=== PATIENT | male | born 1990 | race Hispanic/Latino ===

== ENCOUNTER 2019-01-02 14:12 | Emergency (ER) | payer OTHER ==
[2019-01-02 14:19] VITALS: O2SAT 98
[2019-01-02] MEDS ORDERED: Sodium Chloride 0.9% 1,000 ML IV STA (14:46)
[2019-01-02 15:07] LABS: BASO % 0.4 % (0.0-2.0); EOS % 0.4 % (0.0-4.0); HEMOGLOBIN 13.5 g/dL (12.0-18.0); LYMPH # 1.2 K/uL (1.0-4.3); LYMPH % 10.7 % (20.0-40.0); MEAN CELL VOLUME 93.8 fl (80.0-94.0); MEAN CORPUSCULAR HEMOGLOBIN 31.6 pg (27.0-31.0); MEAN CORPUSCULAR HGB CONC 33.7 g/dL (33.0-37.0); MEAN PLATELET VOLUME 8.9 fl (7.2-11.7); MONO # 0.7 K/uL (0.0-0.8); MONO % 6.2 % (0.0-10.0); NEUT # 9.2 K/uL (1.8-7.0); NEUT % 82.3 % (50.0-75.0); NRBC % 0.1 % (0.0-0.0); RBC 4.27 Mil/uL (4.40-5.90); RED CELL DISTRIBUTION WIDTH 13.3 % (11.5-14.5); WHITE BLOOD COUNT 11.1 K/uL (4.8-10.8)
[2019-01-02 15:19] LABS: ALB/GLOB RATIO 1.7 (1.0-2.1); ALBUMIN 4.5 g/dL (3.5-5.0); ALT/SGPT 30 U/L (21-72); AST/SGOT 31 U/L (17-59); BLOOD UREA NITROGEN 22 mg/dl (9-20); CALCIUM 9.4 mg/dL (8.4-10.2); GFR NON-AFRICAN AMERICAN > 60; LIPASE 42 U/L (23-300)
[2019-01-02 15:35] LABS: SQUAMOUS EPITHIAL < 1 /hpf (0-5); URINE BACTERIA RARE (<OCC); URINE BILIRUBIN NEGATIVE (NEGATIVE); URINE BLOOD NEGATIVE (NEGATIVE); URINE CLARITY CLEAR (Clear); URINE COLOR YELLOW (YELLOW); URINE GLUCOSE (UA) NEG (NEGATIVE); URINE LEUKOCYTE ESTERASE NEG Leu/uL (Negative); URINE PROTEIN NEGATIVE (NEGATIVE); URINE UROBILINOGEN 0.2-1.0 mg/dL (0.2-1.0)
--- NOTE | 2019-01-02 15:39 | ED PDOC ---
HPI: Abdomen Time Seen by Provider: 01/02/19 14:26 Chief Complaint (Nursing): Abdominal Pain History Per: Patient Additional Complaint(s): Pt. states this afternoon at approximately 1200pm he developed peribumbical abdominal pain while walking to get lunch. Pt. states symptoms progressively became worse and he called 911 but en route to ED pain began to subside. Pain is still present but not as severe as the onset. Pt. states he has a hx of gastric ulcers for which he takes a medication for daily but did not take his medication today as he accidentally forgot. Last BM was today and was non-bloody, non- melanotic. Denies fever, chills, chest pain, SOB, rectal bleeding, weakness, previous abdominal surgeries, vomiting. Past Medical History Reviewed: Historical Data, Nursing Documentation, Vital Signs Vital Signs: Last Vital Signs Temp 97.5 F L 01/02/19 14:16 Pulse 71 01/02/19 14:16 Resp 18 01/02/19 14:16 BP 110/63 01/02/19 14:16 Pulse Ox 98 01/02/19 14:16 - Surgical History Surgical History: No Surg Hx - Family History Family History: States: No Known Family Hx - Allergies Allergies/Adverse Reactions: Allergies Allergy/AdvReac Type Severity Reaction Status Date / Time No Known Allergies Allergy Verified 01/02/19 14:16 Review of Systems ROS Statement: Except As Marked, All Systems Reviewed And Found Negative Gastrointestinal: Positive for: Nausea, Abdominal Pain Physical Exam - Physical Exam Appears: Positive for: Well, Non-toxic, No Acute Distress Skin: Positive for: Normal Color, Warm. Negative for: Rash, Jaundice Eye Exam: Positive for: Normal appearance. Negative for: Scleral icterus Gastrointestinal/Abdominal: Positive for: Normal Exam, Bowel Sounds, Soft. Negative for: Tenderness, Guarding Back: Positive for: Normal Inspection. Negative for: L CVA Tenderness, R CVA Tenderness Neurological/Psych: Positive for: Awake, Alert, Oriented (x3) - Laboratory Results Result Diagrams: 01/02/19 15:00 01/02/19 15:00 Lab Results: Total Bilirubin 0.3 mg/dl (0.2-1.3) 01/02/19 15:00 AST 31 U/L (17-59) 01/02/19 15:00 ALT 30 U/L (21-72) 01/02/19 15:00 Alkaline Phosphatase 57 U/L (38-126) 01/02/19 15:00 Total Protein 7.1 G/DL (6.3-8.2) 01/02/19 15:00 Albumin 4.5 g/dL (3.5-5.0) 01/02/19 15:00 Globulin 2.7 gm/dL (2.2-3.9) 01/02/19 15:00 Albumin/Globulin Ratio 1.7 (1.0-2.1) 01/02/19 15:00 Lipase 42 U/L (23-300) 01/02/19 15:00 - ECG O2 Sat by Pulse Oximetry: 98 - Progress ED Course And Treament: Labs, pepcid 20mg IV, viscous lidocaine 15ml PO, IV NS bolus x 1, zofran 4mg IV ordered. On re-evaluation, pt. sleeping comfortably. Easily arousable. Reports complete relief of abdominal pain. Advised to f/u with his GI for further evaluation but is to return to ED immediately if symptoms worsen. Disposition - Clinical Impression Clinical Impression: Dyspepsia - Patient ED Disposition Is Patient to be Admitted: No - [facility] [Outside[facility] Disposition: Routine/Home Disposition Time: 16:15 Condition: IMPROVED Additional Instructions: FOLLOW UP WITH YOUR GI FOR FURTHER EVALUATION RETURN TO ED IMMEDIATELY IF SYMPTOMS WORSEN JULES [facility]ER, thank you for letting us take care of you today. Your provider was Hazel Sherman MD and you were treated for ABD PAIN. The emergency medical care you received today was directed at your acute symptoms. If you were prescribed any medication, please fill it and take as directed. It may take several days for your symptoms to resolve. Return to the Emergency Department if your symptoms worsen, do not improve, or if you have any other problems. Please contact your doctor or call one of the physicians/clinics you have been referred to that are listed on the Patient Visit Information form that is included in your discharge packet. Bring any paperwork you were given at discharge with you along with any medications you are taking to your follow up visit. Our treatment cannot replace ongoing medical care by a primary care provider outside of the emergency department. Thank you for allowing the [facility] team to be part of your care today. If you had an X-Ray or CT scan: A Radiologist will review the ED reading if any change in treatment is needed we will contact you. If you had a blood, urine, or wound culture: It will take several days for the results, if any change in treatment is needed we will contact you. If you had an STI test: It will take 48 hours for the results. Please call after 1 week if you have not heard back. Instructions: Dyspepsia (DC) Forms: [employer] (Sami)
[2019-01-02 16:46] VITALS: BP 110/78; PULSE 78; RESP 19; TEMP 97.6
== END 2019-01-02 17:21 | disposition home or self-care (01) ==
LOC: H.ER 14:12
DX: R10.13 Epigastric pain (principal)
CPT/HCPCS: 80053; 80320; 81003; 83690; 85025; 96374; 96375; 99282; J2405; J7030